=== PATIENT | male | born 1940 | race Caucasian/White ===

== ENCOUNTER → 2022-08-30 | Outpatient (REF) | payer MEDICARE, SELFPAY ==
[2022-08-30 07:27] LABS: Absolute Lymphocyte Count 0.95 X10^3/uL (0.83-4.51); Absolute Neutrophil Count 4.1 X10^3/uL (2.0-7.7); Basophil# 0.05 X10^3/uL; Basophil% 0.8 % (0-1); Eosinophil# 0.15 X10^3/uL; Eosinophils% 2.5 % (0-5); Hematocrit 46.5 % (40-54); Hemoglobin 14.6 g/dL (13.0-16.5); Lymphocyte # 0.95 X10^3/ul (0.83-4.51); Mean Corp Hgb Conc 31.4 g/dL (32-36); Mean Corpuscular Hgb 27.5 pg (27.0-32.0); Mean Corpuscular Volume 87.7 fL (80-94); Monocyte# 0.64 X10^3/uL; Monocyte% 10.8 % (0-10); NRBC Flagged by Analyzer 0 % (0-5); Neutrophil # 4.11 X10^3/uL (2.7-7.7); Neutrophil % 69.6 % (47-70); POSITIVE COUNT YES; RBC Distribution Width CV 13.7 % (11.6-14.6); RBC Distribution Width SD 44.2 fl (35.1-43.9); White Blood Count 5.9 K/mm3 (4.4-11.0)
[2022-08-30 07:56] LABS: Anion Gap 6 (5-15); BUN 21 mg/dL (7-18); BUN/Creat Ratio 17.5 RATIO (10-20); Chloride 105 mmol/L (98-107); EST Glomerular Filtration Rate 62 mL/min (>60); Est Glom Filt Rate - Afr Amer 75 mL/min (>60); Glucose 99 mg/dL (74-106); Potassium 4.1 mmol/L (3.5-5.1); Sodium Level 139 mmol/L (136-145)
[2022-08-30 08:18] LABS: Differential Indicated SCAN CRITERIA MET
[2022-08-30 08:19] LABS: Platelet Estimate ADEQUATE (ADEQ)
[2022-08-30 09:40] LABS: Hemoglobin A1c 5.4 % (3.8-5.6)
== END ==
LOC: OLS.SW 05:00
PROVIDERS: Visit Provider Internal Medicine
DX: R68.89 Other general symptoms and signs (principal); Z13.228 Encounter for screening for other metabolic disorders; Z79.899 Other long term (current) drug therapy
CPT/HCPCS: 36415; 80048; 83036; 85025

== ENCOUNTER 2022-09-06 18:27 | Emergency (ER) | payer MEDICARE, MEDICAID, SELFPAY ==
[2022-09-06 18:28] VITALS: BP 145/77; PULSE 85; RESP 16; TEMP 36.5; O2SAT 94; BMI 26.7
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
[2022-09-06 19:29] LABS: Bacteria 0 SEEN /hpf (None Seen); Mucous, Urine 0 SEEN /hpf (<or=2+); Red Blood Cells-Urine 0 SEEN /hpf (0-5); Squamous Epithelial Cells - UA 0 SEEN /hpf (0-5); White Blood Cells 0 SEEN /hpf (0-5)
[2022-09-06 19:34] LABS: Absolute Lymphocyte Count 1.13 X10^3/uL (0.83-4.51); Absolute Neutrophil Count 3.5 X10^3/uL (2.0-7.7); Basophil# 0.03 X10^3/uL; Basophil% 0.5 % (0-1); Eosinophil# 0.15 X10^3/uL; Eosinophils% 2.7 % (0-5); Hematocrit 44.8 % (40-54); Hemoglobin 14.6 g/dL (13.0-16.5); Lymphocyte # 1.13 X10^3/ul (0.83-4.51); Lymphocyte % 20.6 % (19-41); Mean Corp Hgb Conc 32.6 g/dL (32-36); Mean Corpuscular Hgb 27.5 pg (27.0-32.0); Mean Corpuscular Volume 84.5 fL (80-94); Mean Platelet Vol. 10.7 fl (6.2-12.0); Monocyte# 0.64 X10^3/uL; Monocyte% 11.7 % (0-10); NRBC Flagged by Analyzer 0 % (0-5); Neutrophil # 3.52 X10^3/uL (2.7-7.7); Neutrophil % 64.1 % (47-70); Platelet Count 211 K/mm3 (150-450); RBC Distribution Width CV 13.3 % (11.6-14.6); RBC Distribution Width SD 41.1 fl (35.1-43.9); White Blood Count 5.5 K/mm3 (4.4-11.0)
[2022-09-06 19:54] LABS: Color, Urine Yellow (Yellow); Glucose, Dipstick Normal (Normal); Ketone-Dipstick Negative (Negative); Leukocyte Esterase-Dipstick Negative /ul (Negative); Nitrite-Dipstick Negative (Negative); Occult Blood-Urine Negative /ul (Negative); Protein-Dipstick Negative (Negative); Specific Gravity, Urine 1.015 (1.002-1.030); Urine Bilirubin Dipstick Negative (Negative); Urine Clarity Clear (Clear); Urine Urobilinogen Normal (Normal); Urine pH 6.5 (5.0 - 8.0)
[2022-09-06 19:57] LABS: Anion Gap 4 (5-15); BUN 13 mg/dL (7-18); BUN/Creat Ratio 11.6 RATIO (10-20); Calcium,Total 9.7 mg/dL (8.5-10.1); Chloride 104 mmol/L (98-107); Creatinine, Serum 1.12 mg/dL (0.70-1.30); EST Glomerular Filtration Rate 67 mL/min (>60); Est Glom Filt Rate - Afr Amer 81 mL/min (>60); Estimated Creatinine Clearance 51.74 ml/min; Glucose 111 mg/dL (74-106); Potassium 3.7 mmol/L (3.5-5.1); Sodium Level 138 mmol/L (136-145)
[2022-09-06 20:11] LABS: Alcohol, Blood (Medical)-Serum < 3.0 mg/dL
[2022-09-06 20:14] LABS: Amphetamine Urine VISTA NEGATIVE (<1000 ng/mL); Barbiturate Urine VISTA NEGATIVE (< 200 ng/mL); Benzodiazepine Urine VISTA NEGATIVE (< 200 ng/mL); Cocaine Urine VISTA NEGATIVE (< 300 ng/mL); Ecstacy Urine VISTA NEGATIVE (< 500 ng/mL); Methadone Urine VISTA NEGATIVE (< 300 ng/mL); PCP Urine VISTA NEGATIVE (< 25 ng/mL); THC Urine VISTA NEGATIVE (< 50 ng/mL); Vista UDS pH Range 6
[2022-09-06 22:00] VITALS: BP 138/74; PULSE 74; RESP 16; O2SAT 98
--- NOTE | 2022-09-07 01:06 | ED.RN ---
PT RESTING QUIETLY IN BED, EXTRA BLANKET GIVEN, DENIES NEEDS, NO SIGNS OF DISTRESS. PT REMAINS COOPERATIVE.
--- NOTE | 2022-09-07 03:52 | ED.RN ---
[facility] notified this RN about possible admission. Wanted to discuss placement at this facility and possibility that pt could get sick with stomach bug that is going around facility. Call back for assurance [phone].
--- NOTE | 2022-09-07 05:40 | NURSING ---
assurance called and wants son to give permission for him to go there with a stomach bug going around. LMOM for him to call back and let us know if they are okay with it. Need to call [phone] with answer ai.
[2022-09-07 05:43] VITALS: O2SAT 98
--- NOTE | 2022-09-07 05:52 | ED.RN ---
Son, Cortez, returns call and prefers [facility] and patient is still pending at [facility]. Wants to see if they can accept them instead as he is not interested in [facility]. Waiting on their call back and son is aware of the process. I have not updated Assurance in case they are the only place w a pending bed.
--- NOTE | 2022-09-07 06:11 | NURSING ---
Crisis called for update and aware pending at those 3 places still and only heard back from assurance but son is not interested. Morena at Crisis, is aware the son [facility] patient.
--- NOTE | 2022-09-07 07:37 | ED.RN ---
spoke with violette, she will attempt to reach [facility] after [phone].
[2022-09-07 09:00] VITALS: BP 131/94; PULSE 79; RESP 16; O2SAT 97
--- NOTE | 2022-09-07 09:12 | NURSING ---
ROWENA, ARLENE, CALLED ASKING TO TALK TO SON. HE ISN'T HERE, SO SHE WAS GIVEN HIS PHONE NUMBER. ALSO ASKED IF HE IS THE GUARDIAN
[2022-09-07] MEDS: LORazepam 0.5 MG Tablet PO (09:53)
[2022-09-07] MEDS: RisperiDONE 0.5 MG Tablet PO (10:11)
--- NOTE | 2022-09-07 10:13 | ED.RN ---
THIS PATIENT CONTINUES TO STAND AT [facility] STARING OUT AT STAFF, STATES YOU CANNOT TRUST THEM REFERRING TO STAFF AT DESK, STATES SET IT BY THE SNAKES REFERRING TO PLACING HIS MEAL TRAY ON THE LINEN CART. PATIENT MEDICATED WITH HOME MEDS (ATIVAN AND RISPERIDONE)
--- NOTE | 2022-09-07 10:20 | CM.ED ---
Social Work Note cut roll machine offbearer Nayeli met with GAUDENCIO and briefly reviewed patient's symptoms, explaining he is waiting on inpatient placement. SHANDA Drummond explained patient was actively hallucinating, reporting he has been seeing snacks and talks about who can or can't be trusted at the nurses station. Patient has been standing by his room door looking out the window at the nurses station. GAUDENCIO to follow up. GAUDENCIO contacted [facility] and spoke with Jovita. Jovita explained there were referrals at [facility] and [facility], but the patient had been declined from [facility] and [facility] Morena with [facility] then explained [facility] had just called with accepting information: Dr. Wright, room 302A and N2N [phone]. Jovita then explained patient's son was driving to [place] from [place] and is patient's HCPOA. Patient's son had requested the patient be transferred to [facility] or [facility], however, patient was declined from those facilities. Jovita to follow up with patient's son to inform him of patient's acceptance to [facility]. GAUDENCIO informed MD [place] on patient's acceptance as well as patient's RN. social secretary Carmen coordinated transportation, ETA is two hours. Plan: [facility] for inpatient psych Carol Perez MSW, WIN
--- NOTE | 2022-09-07 10:47 | NURSING ---
CALLED [facility], ETA IS 2 HRS
[2022-09-07 11:00] VITALS: RESP 14
--- NOTE | 2022-09-07 12:55 | ED.RN ---
REPORT CALLED TO JAGJIT BERG AT 1255.
== END 2022-09-07 12:56 ==
PROVIDERS: Emergency Provider Emergency Medicine; PCP Internal Medicine; Visit Provider Emergency Medicine
DX: F41.9 Anxiety disorder, unspecified (principal); F01.511 Vascular dementia, unspecified severity, with agitation; Z79.899 Other long term (current) drug therapy
CPT/HCPCS: 80048; 80307; 81001; 82077; 85025; 87811; 99283